=== PATIENT | female | born 1995 | race Caucasian/White ===

== ENCOUNTER 2023-11-07 01:11 | Emergency (ER) | payer MEDICAID ==
[~2023-11-07] VITALS: Ht 154.9 cm; Wt 50.8 kg
[2023-11-07 01:49] VITALS: BP 115/87; PULSE 100; RESP 18; TEMP 98.6; O2SAT 100
== END 2023-11-07 06:04 | disposition left against medical advice (07) ==
LOC: ER 01:11
DX: N39.9 Disorder of urinary system, unspecified (principal); Z53.21 Procedure and treatment not carried out due to patient leaving prior to being seen by health care provider